=== PATIENT | male | born 1945 | race Caucasian/White ===

== ENCOUNTER 2016-09-29 06:37 | Emergency (ER) | payer OTHER, MEDICARE ==
[~2016-09-29] VITALS: Ht 182.9 cm; Wt 115.7 kg
[2016-09-29] MEDS ORDERED: BACTRIM DS1 TAB PO (07:32)
[2016-09-29 07:40] VITALS: BP 114/75
== END 2016-09-29 07:46 | disposition home or self-care (01) | DRG 603 ==
LOC: ED 06:37
DX: L03.011 Cellulitis of right finger (principal)

== ENCOUNTER 2016-10-01 13:39 | Emergency (ER) | payer MEDICARE ==
[~2016-10-01] VITALS: Ht 182.9 cm; Wt 115.9 kg
[~2016-10-01 13:39] MED LIST: BACTRIM DS1 TAB PO
[2016-10-01] MEDS ORDERED: GLIPIZIDE5 MG PO (14:29)
[2016-10-01] MEDS ORDERED: PRADAXA150 MG PO (14:29)
[2016-10-01] MEDS ORDERED: PROAIR HFA IN (14:30)
[2016-10-01] MEDS ORDERED: DILTIAZEM90 M1 PO (14:31)
[2016-10-01] MEDS ORDERED: SYMBICORT1 AE1 IN (14:31)
[2016-10-01] MEDS ORDERED: ASPIRIN 8181 MG PO (14:32)
[2016-10-01 14:44] VITALS: BP 141/83
== END 2016-10-01 14:51 | disposition home or self-care (01) ==
LOC: ED 13:39
PROC: 0H9QXZZ Drainage of Finger Nail, External Approach (ICD-10-PCS; principal; 2016-10-01)
DX: L03.011 Cellulitis of right finger (principal)

== ENCOUNTER 2016-10-27 16:19 | Emergency (ER) | payer MEDICARE ==
[~2016-10-27] VITALS: Ht 182.9 cm; Wt 115.0 kg
[~2016-10-27 16:19] MED LIST changes: +ASPIRIN 8181 MG PO; +DILTIAZEM90 M1 PO; +GLIPIZIDE5 MG PO; +PRADAXA150 MG PO; +PROAIR HFA IN; +SYMBICORT1 AE1 IN
[2016-10-27] MEDS ORDERED: JUBLIA 10% TOP (16:46)
[2016-10-27] MEDS ORDERED: TRAMADOL HYDROC50 MG PO (16:46)
[2016-10-27 18:24] VITALS: BP 162/80
== END 2016-10-27 18:34 | disposition home or self-care (01) ==
LOC: ED 16:19
PROC: 0HBQXZZ Excision of Finger Nail, External Approach (ICD-10-PCS; principal; 2016-10-27)
DX: B35.1 Tinea unguium (principal); E11.9 Type 2 diabetes mellitus without complications; I10 Essential (primary) hypertension; I48.91 Unspecified atrial fibrillation; J44.9 Chronic obstructive pulmonary disease, unspecified